=== PATIENT | female | born 1975 | race Caucasian/White ===

== ENCOUNTER 2016-12-01 10:11 | Emergency (ER) | payer SELFPAY ==
[2016-12-01 12:07] LABS: Basophils % (Auto) 1.2 % (0.0-1.8); Eosinophils % (Auto) 5.9 % (0.0-4.3); Hematocrit 40.9 % (30.3-42.9); Mean Corpuscular HGB Conc 34 % (30-34); Mean Corpuscular Hemoglobin 30 pg (28-32); Mean Corpuscular Volume 87 fl (79-97); Platelet Count 168 K/mm3 (140-440); Red Blood Count 4.69 M/mm3 (3.65-5.03); White Blood Count 7.6 K/mm3 (4.5-11.0)
[2016-12-01 14:33] LABS: Bacteria,Urine 2+ /HPF (Negative); Bilirubin,Urine NEG (Negative); Blood,Urine NEG (Negative); Ketones,Urine NEG (Negative); Leukocyte Esterase,Urine NEG (Negative); Mucus,Urine FEW /HPF; Nitrite,Urine NEG (Negative); Protein,Urine <15 mg/dL mg/dL (Negative); Urobilinogen,Urine < 2.0 mg/dL (<2.0); WBC,Urine < 1.0 /HPF (0.0-6.0)
--- NOTE | 2016-12-01 15:07 | XRay Report ---
FINAL REPORT EXAM: XR ABDOMEN 1V AP HISTORY: Abd pain TECHNIQUE: 1 view of the abdomen PRIORS: None FINDINGS: Normal bowel gas pattern. No suspicious calcifications. No indirect evidence of free air. No bowel obstruction. IMPRESSION: 1. No acute finding.
[2016-12-01 15:11] LABS: Alanine Aminotransferase 68 units/L (7-56); Albumin 4.3 g/dL (3.9-5); Albumin/Globulin Ratio 1.4 %; Alkaline Phosphatase 71 units/L (35-129); Anion Gap 16 mmol/L; Blood Urea Nitrogen 8 mg/dL (7-17); Carbon Dioxide 27 mmol/L (22-30); Chloride 100.8 mmol/L (98-107); Glucose 90 mg/dL (65-100); Sodium 140 mmol/L (137-145); Total Protein 7.3 g/dL (6.3-8.2)
--- NOTE | 2016-12-01 15:40 | Emergency Department Report ---
HPI - General Chief Complaint: Abdominal Pain Time Seen by Provider: 12/01/16 14:16 - HPI HPI: 41 y.o female is here with abdominal pain, cramping like, 4/10, with nausea. patient symptoms are accompanied by weakness. she denies any alleviating or exacerbating factors. patient is able to eat without difficulty, no vomiting. patient has not taken any medications for her symptoms. patient has a history of irregular menstrual cycle and states her lmp was two months ago. ED Past Medical Hx - Past Medical History Previous Medical History?: No - Surgical History Past Surgical History?: No - Family History Family history: hypertension - Social History Smoking Status: Never Smoker Substance Use Type: None - Medications Home Medications: Home Medications Medication Instructions Recorded Confirmed Last Taken Type Dicyclomine [Bentyl] 10 mg PO QID #60 capsule 12/01/16 Unknown Rx ED Review of Systems ROS: Stated complaint: ABNORMAL PERIODS Other details as noted in HPI Comment: All other systems reviewed and negative Endocrine: no symptoms reported Gastrointestinal: abdominal pain, nausea Physical Exam - Physical Exam Vital Signs: Vital Signs 12/01/16 11:18 Temperature 98.5 F Pulse Rate 78 Respiratory 16 Rate Blood Pressure 115/80 O2 Sat by Pulse 100 Oximetry Physical Exam: Physical Exam: - General Limitations: No Limitations General appearance: alert, in no apparent distress - Head Head exam: Present: atraumatic, normocephalic - Eye Eye exam: Present: normal appearance - ENT ENT exam: Present: mucous membranes moist - Neck Neck exam: Present: normal inspection - Respiratory Respiratory exam: Present: normal lung sounds bilaterally. Absent: respiratory distress - Cardiovascular Cardiovascular Exam: Present: normal rhythm. Absent: systolic murmur, diastolic murmur, rubs, gallop - GI/Abdominal GI/Abdominal exam: Present: soft, normal bowel sounds - Extremities Exam Extremities exam: Present: normal inspection - Back Exam Back exam: Present: normal inspection - Neurological Exam Neurological exam: Present: alert, oriented X3, - Skin Skin exam: Present: warm, dry, intact, normal color. Absent: rash ED Course Vital Signs 12/01/16 11:18 Temperature 98.5 F Pulse Rate 78 Respiratory 16 Rate Blood Pressure 115/80 O2 Sat by Pulse 100 Oximetry ED Medical Decision Making - Lab Data Result diagrams: 12/01/16 11:54 12/01/16 11:54 Critical care attestation.: If time is entered above; I have spent that time in minutes in the direct care of this critically ill patient, excluding procedure time. ED Disposition Clinical Impression: Abdominal pain Qualifiers: Abdominal location: generalized Qualified Code(s): R10.84 - Generalized abdominal pain Disposition: TO HOME OR SELFCARE Is pt being admited?: No Does the pt Need Aspirin: No Condition: Stable Instructions: Abdominal Pain (ED) Prescriptions: Dicyclomine [Bentyl] 10 mg PO QID #60 capsule Referrals: PRIMARY CARE, [Primary Care Provider] - 3-5 Days
[2016-12-01 16:01] VITALS: BP 116/82
== END 2016-12-01 16:03 | disposition home or self-care (01) ==
LOC: ED 10:11
DX: R10.84 Generalized abdominal pain (principal)
CPT/HCPCS: 36415; 74000; 80053; 81001; 84702; 85025; 86850; 86900; 86901